=== PATIENT | female | born 1950 | race American Indian/Alaskan Native ===

== ENCOUNTER 2017-06-15 09:53 | Outpatient (CLI) | payer MEDICARE ==
--- NOTE | 2017-06-15 12:31 | XRay Report ---
XRAY RIGHT KNEE 4 THREE VIEWS: 06/15/17 00:00:00 CLINICAL: Knee pain. FINDINGS: Moderate osteopenia. Marked medial joint space narrowing with large medial osteophytes. Widening of the lateral joint space with a large inferior lateral osteophyte. Patellofemoral joint osteoarthritis with small osteophytes. A quadriceps insertion enthesophyte. No fracture or dislocation. A small benign-appearing osteochondroma of the distal lateral femur.No joint effusion.Normal soft tissues. IMPRESSION: Osteoarthritis and a small benign-appearing osteochondroma of the lateral distal femur.
== END 2017-06-15 09:54 | disposition home or self-care (01) ==
LOC: SPVIMAG 09:53
PROVIDERS: ATTEND Orthopaedic Surgery Sports Medicine
DX: M17.11 Unilateral primary osteoarthritis, right knee (principal); D16.21 Benign neoplasm of long bones of right lower limb